=== PATIENT | female | born 2000 | race Caucasian/White ===

== ENCOUNTER 2022-11-11 05:23 | Emergency (ER) | payer OTHER, SELFPAY ==
--- NOTE | 2022-11-11 05:34 | ED.GENADUL1 ---
HPI - General Adult General Chief complaint: Neck Pain/Injury Stated complaint: NECK PAIN Time Seen by Provider: 11/11/22 05:34 History of Present Illness HPI narrative: Patient presents to emergency Department complaining neck pain. Patient states she woke up yesterday morning with left posterior neck pain. She states she felt like she slept wrong. She had been taking Advil throughout the day which helped it. She went to bed and this morning she woke up and it feels worse than yesterday. She denies any direct trauma. She denies any fever, chills, throat swelling or difficulty swallowing. She denies any recent upper respiratory infection symptoms. She denies any headache. She denies any paresthesias, or weakness. She denies any chest pain, shortness of breath. She denies any abdominal pain. She denies any flank pain, hematuria, dysuria. Pain is worse when she tries to rotate her head to the left. Related Data Previous Rx's Medication Instructions Recorded cyclobenzaprine 10 mg tablet 10 mg PO TID PRN muscle spasm 5 11/11/22 days #14 tabs ketorolac 10 mg tablet 10 mg PO Q8H PRN pain 5 days #14 11/11/22 tabs Allergies Allergy/AdvReac Type Severity Reaction Status Date / Time No Known Drug Allergies Allergy Verified 11/11/22 05:48 Review of Systems ROS Status of ROS 10 or more systems reviewed and unremarkable except as noted in history and below [facility] Social History Smoking status: Never smoker Exam Narrative Exam Narrative: Nurses notes and vital signs reviewed and patient is not hypoxic. General: Nontoxic, Well-appearing and in no apparent distress. Skin: Warm, dry, no pallor noted. No Rash Head: Normocephalic, atraumatic. Neck: Supple, non-tender, Muscle spasm noted to the left posterior neck paraspinal muscles. There is no erythema, no signs of trauma, or infection. Range of motion is limited to rotation to the left secondary to pain only. Eye: Pupils are equal, round and EOMI. No scleral icterus. Ears, Nose, Mouth, and Throat: TM clear, no posterior oropharynx erythema or nasal mucosal hypertrophy, uvula is mid-line Oral mucosa is moist Cardiovascular: Regular Rate and Rhythm without murmur, gallop or rub. Respiratory: No accessory muscle use or respiratory distress. Lungs are clear to auscultation, no wheezing, rales or rhonchi Chest Wall: no tenderness Back: No midline thoracic or lumbar vertebral tenderness. No CVA tenderness Musculoskeletal: normal ROM, no calf or popliteal tenderness, no lower extremity edema/swelling GI: obese, Abdomen is soft, non-distended. Normal bowel sounds. No masses appreciated. No tenderness to palpation. No rebound, guarding, or rigidity noted. Neurological: A&O x4. No cranial nerve dysfunction observed. No truncal ataxia. Moves all extremities. Sensation intact. Psychiatric: Cooperative and interactive. Normal mood and affect. Constitutional Vital Signs, click to edit/add: Last Vital Signs Temp 98.3 F 11/11/22 05:43 Pulse 90 11/11/22 05:43 Resp 18 11/11/22 05:43 BP 121/81 H 11/11/22 05:43 Pulse Ox 99 11/11/22 05:43 O2 Del Method Room Air 11/11/22 05:43 Course Vital Signs Vital signs: Vital Signs Temperature 98.3 F 11/11/22 05:43 Pulse Rate 90 11/11/22 05:43 Respiratory Rate 18 11/11/22 05:43 Blood Pressure 121/81 H 11/11/22 05:43 Pulse Oximetry 99 11/11/22 05:43 Oxygen Delivery Method Room Air 11/11/22 05:43 Temperature 98.3 F 11/11/22 05:43 Pulse Rate 90 11/11/22 05:43 Respiratory Rate 18 11/11/22 05:43 Blood Pressure 121/81 H 11/11/22 05:43 Pulse Oximetry 99 11/11/22 05:43 Oxygen Delivery Method Room Air 11/11/22 05:43 Medical Decision Making MDM Narrative Medical decision making narrative: Patient's history and physical exam are consistent with torticollis. Patient is given a injection of Toradol, and Norflex. This helped her symptoms. She is given a prescription for Flexeril, and Toradol. She will follow up with primary care doctor and return with any CONCERNS. At this time the patient is without objective evidence of an acute process requiring hospitalization or inpatient management. The patient has remained hemodynamically stable. No additional indication for emergent studies at this time. I answered all questions. Discussed discharge instructions including standard anticipatory guidance and what should prompt a return to the emergency department, including if they get worse are not getting better or develops any new or concerning symptoms. I've given them specific time frame in which to follow-up, and who to follow-up with. The patient demonstrates understanding. Patient is nontoxic and stable for discharge with outpatient follow-up. This note was created with the assistance of a speech recognition program. Although the intention is to generate documents that actually reflects the content of the visit, no guarantees can be provided that every mistake has been identified and corrected by editing. Discharge Plan Discharge Chief Complaint: Neck Pain/Injury Clinical Impression: Torticollis, Strain of neck muscle Patient Disposition: Home, Self-Care Time of Disposition Decision: 06:17 Condition: Good Mode of Transportation: Private Vehicle Prescriptions / Home Meds: New cyclobenzaprine 10 mg tablet 10 mg PO TID PRN (Reason: muscle spasm) 5 Days Qty: 14 0RF ketorolac 10 mg tablet 10 mg PO Q8H PRN (Reason: pain) 5 Days Qty: 14 0RF Instructions: Cervical Sprain (ED), Neck Pain (ED) Stand Alone Forms: Portal Instructions Referrals: OSIEL MOFFETT APRN [Physician] - 1 week Physician,Non-Staff, MD [Primary Care Provider] - 1 week
[2022-11-11 05:43] VITALS: BP 121/81; PULSE 90; RESP 18; TEMP 36.8; O2SAT 99; BMI 47.4
[2022-11-11] MEDS: ORPHENADRINE 60 MG/ 2 ML VIAL IM (06:35)
[2022-11-11] MEDS: KETOROLAC TROMETHAMINE 60 MG/2 ML VIAL IM (06:35)
== END 2022-11-11 06:54 | disposition home or self-care (01) ==
PROVIDERS: Emergency Provider Emergency Medicine
DX: S16.1XXA Strain of muscle, fascia and tendon at neck level, initial encounter (principal); M43.6 Torticollis; X58.XXXA Exposure to other specified factors, initial encounter
CPT/HCPCS: 96372; 99284